=== PATIENT | female | born 1950 | race Caucasian/White ===

== ENCOUNTER 2018-01-31 06:59 | Day surgery (SDC) | payer MEDICARE ==
[2018-01-31] MEDS ORDERED: TIMOLOL 0.5% OPHTH DROPS EACHEYE ONE (07:00)
[2018-01-31] MEDS ORDERED: BRIMONIDINE 0.2% OPHTH DROPS 5 ML EACHEYE ONE (07:00)
[2018-01-31] MEDS ORDERED: LACTATED RINGERS 500 ML IV ONE (07:27)
[2018-01-31] MEDS ORDERED: PHENYLEPHRINE 2.5% OPHTH 2 ML DROPS ONE (07:41)
[2018-01-31] MEDS ORDERED: CYCLOPENTOLATE 1% OPHTH DROPS 2 ML ONE (07:41)
[2018-01-31] MEDS ORDERED: KETOROLAC 0.45% OPHTH DROPS ONE (07:41)
[2018-01-31] MEDS ORDERED: PROPARACAINE 0.5% OPHTH DROPS 15 ML ONE (07:41)
[2018-01-31] MEDS ORDERED: CYCLOPENTOLATE 1% OPHTH DROPS 2 ML RIGHTEYE ONE (07:42)
[2018-01-31] MEDS ORDERED: PROPARACAINE 0.5% OPHTH DROPS 15 ML RIGHTEYE ONE ×2 (07:42→08:17)
[2018-01-31] MEDS ORDERED: PHENYLEPHRINE 2.5% OPHTH 2 ML DROPS RIGHTEYE ONE (07:42)
[2018-01-31] MEDS ORDERED: KETOROLAC 0.45% OPHTH DROPS RIGHTEYE ONE (07:42)
[2018-01-31] MEDS ORDERED: BRIMONIDINE 0.2% OPHTH DROPS 5 ML OPTH ONE (08:15)
[2018-01-31] MEDS ORDERED: EPINEPHrine 1 MG/ML AMP IVP ONE (08:15)
[2018-01-31] MEDS ORDERED: CHONDR SULF/HYALURONATE SYRINGE IO ONE (08:16)
[2018-01-31] MEDS ORDERED: TRIAMCIN/MOXIFLOX/VANCO 1 ML VIAL IO ONE (08:16)
[2018-01-31] MEDS ORDERED: TIMOLOL 0.5% OPHTH DROPS OPTH ONE (08:16)
[2018-01-31] MEDS ORDERED: BSS/LIDOCAINE/EPINEPHRINE 1 ML SYRINGE IO ONE (08:16)
[2018-01-31] MEDS ORDERED: LABETALOL 5 MG/1 ML 20 ML MDV IV ONE (08:17)
[2018-01-31] MEDS ORDERED: MIDAZOLAM 2 MG/2 ML VIAL IVP ONE (08:17)
[2018-01-31 08:46] VITALS: BP 180/77
--- NOTE | 2018-01-31 10:49 | OPERATIVE REPORT ---
DATE OF SERVICE: 01/31/2018 Physician: Todd Jasso MD PREOPERATIVE DIAGNOSIS: Visually significant cataract, right eye. This is her first cataract surgery. POSTOPERATIVE DIAGNOSIS: Visually significant cataract, right eye. This is her first cataract surgery. NAME OF PROCEDURE: Phacoemulsification with posterior chamber intraocular lens implant, right eye. SURGEON: Todd Jasso M.D. ANESTHESIA: Monitored anesthesia care. COMPLICATIONS: None. OPERATIVE INDICATIONS: This is a 67-year-old woman with progressive vision loss in her right eye due to 4+ nuclear sclerotic and 3+ cortical cataract. Best corrected visual acuity was 20/400 with glare to hand motion vision in the right eye. INDICATIONS FOR SURGERY: Overall decrease in vision, difficulty seeing words on a computer screen, difficulty reading, difficulty seeing words closed captions or game scores on TV, difficulty seeing street signs, difficulty driving in low light or at night, difficulty driving at night because of headlights from other vehicles and/or street lights, difficulty with glare or bright lights in any situation, difficulty tracking a golf ball, decreased acuity with firearms, and ability to see her granddaughter's face, and she is afraid of falling because she cannot see in front of her. She was consented at length concerning risks and benefits of cataract surgery. After which, she expressed a desire to proceed with surgery. OPERATIVE PROCEDURE: The patient was taken to OR #3 and placed under monitored anesthesia care. A surgical timeout was conducted confirming the correct patient, correct procedure, and correct surgical site. She was given topical anesthesia, and then prepped and draped in the usual sterile fashion. The eye was entered at the 12 and 9 o'clock positions. Intracameral Shugarcaine was injected into the anterior chamber, followed by Viscoat. A continuous-tear curvilinear capsulorrhexis was performed. The nucleus was hydrodissected and phacoemulsified. The cortex was evacuated using automated infusion aspiration. Provisc was injected in the capsular bag, and a 23.5 diopter intraocular lens was inserted in the bag. Approximately 0.7 mL of a mixture of triamcinolone and moxifloxacin was injected subconjunctivally in the superior quadrant for infection and inflammation prophylaxis. I and A was used to evacuate the viscoelastic material. The eye was inflated to physiologic pressure using balanced salt solution and found to be watertight. The patient was taken from the operating room in good condition and given postop instructions. TD: 01/31/2018 08:40
== END 2018-01-31 07:00 | disposition home or self-care (01) ==
LOC: SDS 06:59
PROVIDERS: ATTEND Ophthalmology
PROC: 08RJ3JZ Replacement of Right Lens with Synthetic Substitute, Percutaneous Approach (ICD-10-PCS; principal; 2018-01-31 08:00)
DX: H25.811 Combined forms of age-related cataract, right eye (principal); E11.9 Type 2 diabetes mellitus without complications
CPT/HCPCS: 66984; A9270; J3490; V2632

== ENCOUNTER 2018-02-21 07:20 | Day surgery (SDC) | payer MEDICARE ==
[~2018-02-21 07:20] MED LIST: BRIMONIDINE 0.2% OPHTH DROPS 5 ML ONE; BSS/LIDOCAINE/EPINEPHRINE 1 ML SYRINGE ONE; CYCLOPENTOLATE 1% OPHTH DROPS 2 ML ONE; EPINEPHrine 1 MG/ML AMP ONE; KETOROLAC 0.45% OPHTH DROPS ONE; PHENYLEPHRINE 2.5% OPHTH 2 ML DROPS ONE; PROPARACAINE 0.5% OPHTH DROPS 15 ML ONE; TIMOLOL 0.5% OPHTH DROPS ONE; TRIAMCIN/MOXIFLOX OPHTHALMIC 0.6 ML VIAL IO ONE; VANCOMYCIN OPHTHALMI 8MG/0.8ML 8 MG/0.8 ML SYRINGE IO ONE
[2018-02-21] MEDS ORDERED: LACTATED RINGERS 500 ML IV ONE (08:06)
[2018-02-21] MEDS ORDERED: KETOROLAC 0.45% OPHTH DROPS LEFTEYE ONE (08:34)
[2018-02-21] MEDS ORDERED: PROPARACAINE 0.5% OPHTH DROPS 15 ML LEFTEYE ONE ×2 (08:34→09:25)
[2018-02-21] MEDS ORDERED: PHENYLEPHRINE 2.5% OPHTH 2 ML DROPS LEFTEYE ONE (08:35)
[2018-02-21] MEDS ORDERED: CYCLOPENTOLATE 1% OPHTH DROPS 2 ML LEFTEYE ONE (08:35)
[2018-02-21] MEDS ORDERED: fentaNYL 100 MCG/2 ML VIAL IVP ONE (09:21)
[2018-02-21] MEDS ORDERED: CHONDR SULF/HYALURONATE SYRINGE IO ONE (09:24)
[2018-02-21] MEDS ORDERED: TIMOLOL 0.5% OPHTH DROPS OPTH ONE (09:24)
[2018-02-21] MEDS ORDERED: BRIMONIDINE 0.2% OPHTH DROPS 5 ML OPTH ONE (09:24)
[2018-02-21] MEDS ORDERED: EPINEPHrine 1 MG/ML AMP IVP ONE (09:24)
[2018-02-21] MEDS ORDERED: BSS/LIDOCAINE/EPINEPHRINE 1 ML SYRINGE IO ONE ×2 (09:24)
[2018-02-21] MEDS ORDERED: TRIAMCIN/MOXIFLOX/VANCO 1 ML VIAL IO ONE ×2 (09:25)
[2018-02-21 09:45] VITALS: BP 139/77
--- NOTE | 2018-02-21 10:35 | OPERATIVE REPORT ---
DATE OF SERVICE: 02/21/2018 Physician: Todd Jasso MD PREOPERATIVE DIAGNOSIS: Visually significant cataract, left eye. Cataract surgery was performed on the right eye on 01/31/2018 POSTOPERATIVE DIAGNOSIS: Visually significant cataract, left eye. Cataract surgery was performed on the right eye on 01/31/2018 PROCEDURE: Phacoemulsification with posterior chamber intraocular lens implant, left eye. SURGEON: Todd Jasso MD ANESTHESIA: Monitored anesthesia care. COMPLICATIONS: None. OPERATIVE INDICATIONS: This is a 67-year-old woman with progressive vision loss in the left eye due to 4+ nuclear sclerotic and 2+ posterior subcapsular cataract. Best corrected visual acuity was 20/200 with glare to count fingers vision in the left eye. Indications for surgery are overall decrease in vision, difficulty seeing words on a computer screen, difficulty reading, difficulty seeing words closed captioned and game scores on TV, difficulty seeing street signs, difficulty driving in low light or at night, difficulty driving at night because of headlights from other vehicles, difficulty with glare or bright lights in any situation, difficulty tracking a golf ball, and decreased acuity with far arms. She was consented at length concerning risks and benefits of cataract surgery, after which she expressed a desire to proceed with surgery. OPERATIVE PROCEDURE: The patient was taken into OR #3 placed under monitored anesthesia care. A surgical timeout was conducted confirming correct patient, correct procedure, and correct surgical site. She was given topical anesthesia, and prepped and draped in the usual sterile fashion. The eye was entered at the 6 and 3 o'clock position. Intracameral Shugarcaine was injected into the anterior chamber followed by Viscoat. A continuous-tear curvilinear capsulorrhexis was performed. Nucleus was hydrodissected and phacoemulsified. The cortex was evacuated using automated infusion and aspiration. Provisc was injected in the capsular bag, and a 23.0 diopter intraocular lens inserted in the bag. Approximately 0.9 mL of a mixture of triamcinolone, moxifloxacin, and vancomycin was injected subconjunctivally in the superior quadrant for infection and inflammation prophylaxis. I and A was used to evacuate the viscoelastic materials. The eye was inflated to physiologic pressure using balanced salt solution and found to be watertight. The patient was taken from the operating room in good condition and given postop instructions. TD: 02/21/2018 09:46
== END 2018-02-21 07:21 | disposition home or self-care (01) ==
LOC: SDS 07:20
PROVIDERS: ATTEND Ophthalmology
PROC: 08RK3JZ Replacement of Left Lens with Synthetic Substitute, Percutaneous Approach (ICD-10-PCS; principal; 2018-02-21 09:00)
DX: H25.812 Combined forms of age-related cataract, left eye (principal); E11.9 Type 2 diabetes mellitus without complications; Z79.4 Long term (current) use of insulin
CPT/HCPCS: 66984; A9270; J3490; V2632